=== PATIENT | male | born 1980 | race Caucasian/White ===

== ENCOUNTER 2022-12-24 12:37 | Emergency (ER) | payer BC | END 2022-12-24 14:27 | disposition home or self-care (01) | LOC: JD.ED 12:37 | DX: R03.0 Elevated blood-pressure reading, without diagnosis of hypertension (principal); E66.9 Obesity, unspecified; Z68.41 Body mass index [BMI] 40.0-44.9, adult | CPT/HCPCS: 99283 ==

== ENCOUNTER 2023-09-06 11:10 | Inpatient (IN) | payer BC ==
[2023-09-06] MEDS: Sodium Chloride 0.9% 10 ML Syringe FLUSH PRN ×2 (11:30→12:13)
[2023-09-06] MEDS: Albuterol/Ipratropium 3.0-0.5 MG/3 ML Neb Soln NEB ONE (11:34)
[2023-09-06 11:46] LABS: BASOPHILS ABSOLUTE AUTO 0.1 K/mm3 (0.0-0.2); BASOPHILS PERCENT AUTO 0.5 % (0.0-1.0); EOSINOPHILS ABSOLUTE AUTO 0.3 K/mm3 (0.0-0.4); EOSINOPHILS PERCENT AUTO 1.9 % (0.0-6.0); HEMATOCRIT 43.4 % (42.0-52.0); IMMATURE GRAN ABSOLUTE AUTO 0.03 K/mm3 (0.00-0.05); IMMATURE GRAN PERCENT AUTO 0.2 % (0.0-0.4); LYMPHOCYTES ABSOLUTE AUTO 2.2 K/mm3 (1.0-4.8); LYMPHOCYTES PERCENT AUTO 17.1 % (24.0-44.0); MEAN CORPUSCULAR HEMOGLOBIN 29.6 pg (28.0-32.0); MEAN CORPUSCULAR HGB CONC 34.6 g/dl (32.0-36.0); MEAN CORPUSCULAR VOLUME 85.6 fl (83.0-99.0); MEAN PLATELET VOLUME 9.5 fl (9.4-12.4); MONOCYTES ABSOLUTE AUTO 1.3 K/mm3 (0.0-0.8); MONOCYTES PERCENT AUTO 10.1 % (0.0-8.0); NEUTROPHILS PERCENT AUTO 70.2 % (41.0-71.0); PLATELET COUNT,PLT 389 K/mm3 (150-400); RED BLOOD CELL COUNT 5.07 M/mm3 (4.52-5.90); WHITE BLOOD CELL COUNT,WBC 12.84 K/mm3 (3.9-11.3)
[2023-09-06 11:57] LABS: A/G RATIO 0.9 (1-2); ALBUMIN 3.4 g/dl (3.4-5.0); ANION GAP 14.8 (5-15); BILIRUBIN TOTAL 0.9 mg/dL (0.2-1.0); BUN/CREATININE RATIO 11.7 (14-18); CALCIUM 8.8 mg/dL (8.5-10.1); CREATININE 1.2 mg/dL (0.7-1.3); EST CRCL DRUG DOSING (CG) 89.7 mL/min; POTASSIUM,K 3.8 mEq/L (3.5-5.1); PROTEIN TOTAL,TP 7.4 g/dl (6.4-8.2)
[2023-09-06] MEDS: Iopamidol 755 Mg/ML 100 ML Bottle IVPUSH ONE (12:13)
[2023-09-06] MEDS: Sodium Chloride 0.9% 45 ML IV SCH (12:14)
[2023-09-06 12:39] LABS: CORONAVIRUS COVID-19 NAA NEGATIVE (NEGATIVE); INFLUENZA A NAA NEGATIVE (NEGATIVE); RESPIRATORY SYNCYTIAL VIR NAA NEGATIVE (NEGATIVE)
[2023-09-06] MEDS: Furosemide 40 MG/4 ML VIAL IVPUSH ONE (17:20)
[2023-09-06] MEDS: hydrALAZINE 20 MG/ML SDV IVPUSH ONE (17:20)
[2023-09-06] MEDS ORDERED: Temazepam 15 MG Cap PO PRN (17:24)
[2023-09-06] MEDS ORDERED: Acetaminophen 325 MG Tab PO PRN (17:24)
[2023-09-06] MEDS ORDERED: oxyCODONE 5 MG Tab PO PRN (17:24)
[2023-09-06] MEDS: hydrALAZINE 20 MG/ML SDV IVPUSH PRN (18:10)
[2023-09-06] MEDS: Heparin Sodium 5,000 Units/ML Vial SUBCUT SCH (18:46)
[2023-09-07 04:49] LABS: BASOPHILS ABSOLUTE AUTO 0.1 K/mm3 (0.0-0.2); BASOPHILS PERCENT AUTO 0.5 % (0.0-1.0); EOSINOPHILS ABSOLUTE AUTO 0.2 K/mm3 (0.0-0.4); EOSINOPHILS PERCENT AUTO 1.4 % (0.0-6.0); HEMATOCRIT 41.5 % (42.0-52.0); HEMOGLOBIN 14.2 gm/dl (14.0-18.0); IMMATURE GRAN ABSOLUTE AUTO 0.05 K/mm3 (0.00-0.05); IMMATURE GRAN PERCENT AUTO 0.4 % (0.0-0.4); LYMPHOCYTES ABSOLUTE AUTO 2.5 K/mm3 (1.0-4.8); LYMPHOCYTES PERCENT AUTO 19.1 % (24.0-44.0); MEAN CORPUSCULAR HEMOGLOBIN 28.7 pg (28.0-32.0); MEAN CORPUSCULAR HGB CONC 34.2 g/dl (32.0-36.0); MEAN PLATELET VOLUME 9.1 fl (9.4-12.4); MONOCYTES ABSOLUTE AUTO 1.2 K/mm3 (0.0-0.8); MONOCYTES PERCENT AUTO 9.3 % (0.0-8.0); NEUTROPHILS ABSOLUTE AUTO 9.2 K/mm3 (1.8-7.7); NEUTROPHILS PERCENT AUTO 69.3 % (41.0-71.0); PLATELET COUNT,PLT 356 K/mm3 (150-400); RED BLOOD CELL COUNT 4.94 M/mm3 (4.52-5.90); WHITE BLOOD CELL COUNT,WBC 13.26 K/mm3 (3.9-11.3)
[2023-09-07] MEDS: Enalaprilat 1.25 MG/ML SDV IVPUSH PRN (05:04)
[2023-09-07 05:18] LABS: A/G RATIO 0.8 (1-2); ALBUMIN 2.9 g/dl (3.4-5.0); ANION GAP 16.2 (5-15); BILIRUBIN TOTAL 0.9 mg/dL (0.2-1.0); CALCIUM 8.3 mg/dL (8.5-10.1); EST CRCL DRUG DOSING (CG) 107.64 mL/min; POTASSIUM,K 3.2 mEq/L (3.5-5.1); PROTEIN TOTAL,TP 6.5 g/dl (6.4-8.2)
[2023-09-07] MEDS: Losartan 50 MG Tab PO SCH (09:10)
[2023-09-07] MEDS: Furosemide 20 MG Tab PO SCH (09:10)
[2023-09-07] MEDS: Potassium Chloride 20 MEQ Tab.ER PO SCH (09:51)
[2023-09-07 12:01] LABS: HEMOGLOBIN A1C 9.2 %
[2023-09-07] MEDS: amLODIPine 5 MG Tab PO SCH (13:37)
[2023-09-07] MEDS: Insulin Glargine,Human Rec. Analog 100 Units/ML 3 ML Pen SUBCUT SCH (13:38)
[2023-09-07 18:01] LABS: MICROALBUMIN CREAT RATIO,UR 24.8 mg/g (0-30); MICROALBUMIN,URINE RANDOM 21.1 mg/L (1.3-20.0)
[2023-09-07] MEDS: Insulin Lispro 100 Unit/ML 3 ML KwikPen SUBCUT SCH (18:03)
[2023-09-07] MEDS: cloNIDine 0.1 MG Tab PO ONE (18:04)
[2023-09-07] MEDS: Chlorthalidone 25 MG Tab PO ONE (18:24)
[2023-09-08 04:54] LABS: BASOPHILS ABSOLUTE AUTO 0.1 K/mm3 (0.0-0.2); BASOPHILS PERCENT AUTO 0.4 % (0.0-1.0); EOSINOPHILS ABSOLUTE AUTO 0.3 K/mm3 (0.0-0.4); EOSINOPHILS PERCENT AUTO 2.3 % (0.0-6.0); HEMATOCRIT 40.6 % (42.0-52.0); HEMOGLOBIN 13.6 gm/dl (14.0-18.0); IMMATURE GRAN ABSOLUTE AUTO 0.04 K/mm3 (0.00-0.05); IMMATURE GRAN PERCENT AUTO 0.3 % (0.0-0.4); LYMPHOCYTES ABSOLUTE AUTO 3.1 K/mm3 (1.0-4.8); LYMPHOCYTES PERCENT AUTO 22.7 % (24.0-44.0); MEAN CORPUSCULAR HEMOGLOBIN 29.1 pg (28.0-32.0); MEAN CORPUSCULAR HGB CONC 33.5 g/dl (32.0-36.0); MEAN CORPUSCULAR VOLUME 86.8 fl (83.0-99.0); MEAN PLATELET VOLUME 9.7 fl (9.4-12.4); MONOCYTES ABSOLUTE AUTO 1.4 K/mm3 (0.0-0.8); MONOCYTES PERCENT AUTO 10.1 % (0.0-8.0); NEUTROPHILS ABSOLUTE AUTO 8.8 K/mm3 (1.8-7.7); NEUTROPHILS PERCENT AUTO 64.2 % (41.0-71.0); PLATELET COUNT,PLT 373 K/mm3 (150-400); RED BLOOD CELL COUNT 4.68 M/mm3 (4.52-5.90); WHITE BLOOD CELL COUNT,WBC 13.72 K/mm3 (3.9-11.3)
[2023-09-08 05:39] LABS: ANION GAP 13.9 (5-15); BUN/CREATININE RATIO 11.7 (14-18); CALCIUM 8.3 mg/dL (8.5-10.1); CREATININE 1.2 mg/dL (0.7-1.3); EST CRCL DRUG DOSING (CG) 89.7 mL/min; MAGNESIUM 1.8 mg/dL (1.8-2.4); POTASSIUM,K 3.9 mEq/L (3.5-5.1)
[2023-09-08] MEDS: Potassium Chloride 20 MEQ Tab.ER PO ONE (08:30)
[2023-09-08] MEDS: Losartan 100 MG Tab PO SCH (08:30)
[2023-09-08] MEDS: Chlorthalidone 25 MG Tab PO SCH (08:30)
[2023-09-08] MEDS: Aspirin 81 MG Tab.Chew PO SCH (08:30)
[2023-09-08] MEDS: Magnesium Oxide 400 MG Tab PO ONE (08:30)
[2023-09-08] MEDS: Enoxaparin 40 MG/0.4 ML Syringe SUBCUT SCH (08:33)
[2023-09-08] MEDS: Insulin Glargine,Human Rec. Analog 100 Units/ML 3 ML Pen SUBCUT SCH (08:33)
[2023-09-08] MEDS ORDERED: amLODIPine 5 MG Tab PO ONE (11:36)
[2023-09-08] MEDS: cloNIDine 0.1 MG Tab PO ONE (11:49)
[2023-09-08] MEDS ORDERED: amLODIPine 10 MG Tab PO SCH (21:00)
[2023-09-09] MEDS ORDERED: amLODIPine 5 MG Tab PO SCH (09:00)
== END 2023-09-08 15:25 | disposition home or self-care (01) | DRG 199 ==
LOC: JD.ED 11:10 → JD.MS 17:24
PROVIDERS: ADMIT Internal Medicine; ATTEND Internal Medicine
DX: I16.1 Hypertensive emergency (principal); I10 Essential (primary) hypertension; J81.0 Acute pulmonary edema; I27.20 Pulmonary hypertension, unspecified; E66.01 Morbid (severe) obesity due to excess calories; R79.89 Other specified abnormal findings of blood chemistry; E87.6 Hypokalemia; E11.9 Type 2 diabetes mellitus without complications; D72.829 Elevated white blood cell count, unspecified; Z86.16 Personal history of COVID-19; Z68.42 Body mass index [BMI] 45.0-49.9, adult
CPT/HCPCS: 0241U; 36415; 71046; 71046-26; 71275; 71275-26; 80048; 80053; 80061; 81003; 82043; 82947; 83036; 83735; 83880; 84484; 85025; 85379; 93005; 93010; 93307; 94640; 96374; 96375; 99285; 99285-25; A9270-GY; J0360; J1644; J1650; J1815; J1815-GY; J1940; J3490; J7620-GY; Q9967